=== PATIENT | male | born 1960 | race Caucasian/White ===

== ENCOUNTER 2016-10-16 05:54 | Inpatient (IN) | payer OTHER ==
[~2016-10-16] VITALS: Ht 172.7 cm; Wt 109.3 kg
[2016-10-16] VITALS (7 sets, daily range): BP systolic 93–152; BP diastolic 54–80
--- NOTE | ~2016-10-16 | CARDNUC ---
[facility] [employer] [place] [address] CARDIAC NUCLEAR IMAGING REPORT Name: CARO GÓMEZ Room #: 210-P [facility] IN M.R.#: [id number] Admission: 10/16/16 Attend Phys: Alok Arambula Discharge: Date of : 58 Date of Service: 10/17/16 1706 Report #: [id number] THIS REPORT FOR: //name// CC: Alok Benítez Banner DATE OF SERVICE: 10/17/2016 VASODILATOR GATED SPECT MYOCARDIAL PERFUSION IMAGING: Regadenoson. REFERRING PHYSICIAN: Oneyda Lowry MD. REFERRING DIALYSIS TECHNICIAN: Jimi Mejia MD [facility]. HOSPITALIST: Alok Delgado MD. DATE OF STUDY: 10/17/2016. INDICATIONS FOR STUDY: Chest pain. RISK FACTORS: Age, hyperlipidemia, hypertension, history of tobacco abuse, and family history. CARDIAC HISTORY: Previous known coronary artery disease, status post coronary artery bypass graft surgery. CARDIAC MEDICATIONS: Norvasc, aspirin, and lisinopril. GENDER: Male. PROCEDURE: The patient was given 0.4 mg of intravenous regadenoson (Lexiscan) administered over approximately 20 seconds. The patient did complain of chest pain during the study. In response to complaints of chest discomfort, the patient was not given intravenous aminophylline. Note: The chest pain was described as tightness in the front of his shoulders. At baseline the blood pressure was 151/76 and the heart rate was 75; at completion of the regadenoson infusion the blood pressure was 128/70 and the heart rate was 108. At completion of the recovery phase, the blood pressure was 152/77 and the heart rate was 82. The baseline EKG demonstrated normal sinus rhythm, it was a normal EKG. The EKG at completion of the administration of regadenoson demonstrated significant ST-segment depression in the inferior and lateral leads, there was [address]-segment depression in the inferior leads, and [address]-segment depression in the lateral leads. This is considered a highly [facility] [address] [place] [address] CARDIAC NUCLEAR IMAGING REPORT Name: CARO GÓMEZ Room #: 210-P ADM IN M.R.#: [id number] Admission: 10/16/16 Attend Phys: Alok Arambula Discharge: Date of : 58 Date of Service: 10/17/16 1706 Report #: [id number] suspicious EKG response to Lexiscan. It is highly suspicious for ischemia. Rhythm disturbances included none. Gated-SPECT myocardial perfusion imaging was performed using a two-day imaging protocol and a single isotope technique. The 38.5 mCi of Tc-99m sestamibi was administered intravenously at rest; 35.1 mCi of Tc-99m sestamibi was administered intravenously within 20 seconds of the completion of the administration of regadenoson. Imaging was obtained in the supine position and when feasible, adjunctive stress imaging in the prone position was obtained. FINDINGS: The overall quality of the study was adequate. There was some evidence of attenuation artifact. There was no evidence of abnormal extracardiac uptake of the radionuclide. The baseline imaging study demonstrated very small very mild apical defect, small mild lateral defect near the base and small mild inferior defect near the base. The imaging obtained following the administration of the vasodilator demonstrated very small very mild apical defect of small to moderate in size and mild to moderate intensity lateral defect near the base. That was worse than seen at rest and a small mild to moderate in intensity inferior defect near the base that was worse than it was seen at rest. Prone images were unchanged from those seen with the regular stress or vasodilator images and are described above. These images demonstrate a small area of mild lateral partially reversible ischemia and small area of mild inferior partially reversible ischemia. Lateral defect is larger than the inferior defect. These areas of ischemia are seen in the context of an old inferolateral myocardial infarction. On gated analysis, the left ventricle demonstrated normal contractility, overall with severe septal hypokinesis, consistent with a known previous coronary artery bypass graft surgery. The gated ejection fraction was 62%. The left ventricle was of normal at rest and did dilate somewhat with administration of the vasodilator; however, there was insufficient dilatation to diagnose global ischemia. The TID was 1.13. IMPRESSIONS: CLINICAL RESPONSE: Possibly ischemic. STRESS EKG RESPONSE: Ischemic. MYOCARDIAL PERFUSION STUDY: Ischemic. FUNCTIONAL CAPACITY: Not assessed. CONCLUSIONS: The Lexiscan Cardiolite stress test demonstrates small area of mild lateral ischemia and small area of mild inferior ischemia in the context of an old inferolateral infarct. Overall, this is a moderate risk study. [address] [address] CARDIAC NUCLEAR IMAGING REPORT Name: KOMALOLYACARO Room #: 210-P [facility] IN M.R.#: [id number] Admission: 10/16/16 Attend Phys: Alok Arambula Discharge: Date of : 58 Date of Service: 10/17/166 Report #: [id number] Note: The results of this study were called to Dr. Mejia at around 3 o'clock today. <ELECTRONICALLY SIGNED> By: Bart Massey MD, FACC 10/18/16 1510 1706 193 Bart Massey MD, FACC /nt
--- NOTE | ~2016-10-16 | HC ---
[facility] [place] [address] CONSULTATION Name: CARO GÓMEZ Room #: 210-P ADM IN M.R.#: [id number] Admission: 10/16/16 Attend Phys: Alok Delgado Discharge: Date of : 58 Report #: [id number] THIS REPORT FOR: //name// CC: Alok Recio REQUESTING PHYSICIAN: Alok Delgado MD CHIEF COMPLAINT: Chest pain. HISTORY OF PRESENT ILLNESS: The patient is a 56-year-old man with a history of prior bypass surgery who presented to the emergency department at [facility] with chest pain. He described it as a burning sensation in his center and upper left chest. It occurred at rest. It lasted 5-20 minutes long. He did not have any nitroglycerin. He was evaluated in the emergency room and admitted and his cardiac troponin levels were negative. He denied any exertional symptoms. He has been inactive after a pelvic fracture earlier this winter from a horse riding accident. He denies associated diaphoresis or palpitations, but had been a little bit short of breath with the episodes. His symptoms were described as moderate to severe in nature. PAST MEDICAL HISTORY: Significant for coronary artery disease, status post bypass surgery in 2006. He has a 4-vessel CABG with YI to LAD, a saphenous vein graft to second obtuse marginal and a separate saphenous vein graft to the PDA of the right coronary artery. He has normal LV function. He has hypertension, hyperlipidemia. HOME MEDICATIONS: Include amlodipine, aspirin, fish oil, lisinopril 40 mg daily, Synthroid 100 mcg daily. ALLERGIES: He has some intolerance to STATINS. He developed severe muscle cramps. REVIEW OF SYSTEMS: CARDIOVASCULAR: Positive chest pain. No shortness of breath, no orthopnea. NEUROLOGIC: Denies slurred speech, extremity numbness or weakness. HEMATOLOGIC: No anemia or bleeding disorders. SKIN: No rashes. GENERAL: No fevers or chills. ALLERGIES: No aspirin or contrast allergies. NEUROLOGIC: Denies slurred speech, extremity numbness or weakness. No history [facility] [address] [place] [address] CONSULTATION Name: CARO GÓMEZ Room #: 210-P [facility] IN ..#: [id number] Admission: 10/16/16 Attend Phys: Alok Delgado Discharge: Date of : 58 Report #: [id number] of strokes, TIAs. PHYSICAL EXAMINATION: VITAL SIGNS: Blood pressure is 126/70, pulse is 87, temperature is 36.7. GENERAL: Pleasant, mildly obese, middle-aged male. He is alert, oriented, no apparent distress. NECK: Supple. No jugular venous distention. Carotid upstrokes are normal. CARDIOVASCULAR: Regular, no murmur. LUNGS: Clear to auscultation. ABDOMEN: Soft, nontender. EXTREMITIES: No peripheral edema. SKIN: Warm and dry. Electrocardiogram shows sinus rhythm with normal ST segments. LABORATORY DATA: Hemoglobin is 12.7, white blood cell count is 8.7, platelet count is 264. Troponin I is 0.04 x 2 sets. IMAGING: Chest x-ray and CTA were performed which showed negative for pulmonary embolism dissection. Lungs were clear. There is splenomegaly with a long slender splenic shape. Chest x-ray showed no acute process. IMPRESSION: 1. Angina. His symptoms for chest discomfort are concerning, is ruled out for an acute myocardial infarction. We will check a pharmacologic nuclear stress test. 2. Coronary artery disease, status post coronary artery bypass graft. He will continue with medical therapy including aspirin. 3. Dyslipidemia. His LDL was markedly elevated. At our last visit, he was supposed to be trialing a low dose of Crestor on a biweekly or triweekly schedule because he has a history of statin myalgia. By: [id number] Jimi Mejia MD, FACC /nt
--- NOTE | ~2016-10-16 | CATHLAB ---
[facility] [place] [address] INVASIVE PROCEDURE REPORT Name: CARO GÓMEZ Room #: 210-P [facility] IN .R.#: [id number] Admission: 10/16/16 Attend Phys: Alok Arambula Discharge: 10/18/16 Date of : 58 Date of Service: 10/18/16 1027 Report #: [id number] THIS REPORT FOR: //name// CC: Alok Recio DATE OF SERVICE: 10/18/2016 Done and dictated by Dr. Enrique on 10/18/2016. PREOPERATIVE DIAGNOSIS: Angina with abnormal nuclear stress test. POSTOPERATIVE DIAGNOSES: Angina with abnormal nuclear stress test; significant coronary artery disease with prior coronary artery bypass grafting. PROCEDURE: 1. Left heart catheterization. 2. Left ventriculography. 3. Selective right and left coronary arteriography. 4. Aortic coronary saphenous vein bypass graft study. 5. YI graft study. TECHNIQUE: After careful preparation and draping of the right femoral site, local anesthesia was achieved by injection of 1% lidocaine. Utilizing the Seldinger technique, a 6-Slovak sheath was inserted in the right femoral artery. I then advanced a 6-Slovak pigtail catheter in left ventricular cavity where pressure was recorded. A single left ventriculogram was performed with 35 mL of contrast injected, the heart projected in the 30 degree BAGLEY projection. Under careful pressure monitoring, the catheter was withdrawn across the aortic valve. It was exchanged for a 6-Slovak JL and JR4 diagnostic catheters with which selective coronary arteriography was performed. Utilizing a 6-Slovak YI graft catheter, YI graft angiography was performed. Utilizing an Amplatz right 1 diagnostic catheter, the vein graft to the right coronary artery was defined with multiple views obtained and I defined the stump of the previously constructed vein graft to the circumflex. Following the final view, the last catheter was withdrawn. The arterial sheath was removed and a Mynx device was placed in the right femoral site with good hemostasis obtained. Sterile dressing was applied, and the patient was transferred to the recovery area in satisfactory condition. HEMODYNAMIC RESULTS: 1. The underlying heart rhythm was sinus. 2. Aortic pressure was 130/70. 3. Left ventricular end diastolic pressure was 15 mmHg. 4. Under direct pullback across the aortic valve, there was no significant [facility] [address] [place] [address] INVASIVE PROCEDURE REPORT Name: CARO GÓMEZ Room #: 210-P [facility] IN M.R.#: [id number] Admission: 10/16/16 Attend Phys: Alok Arambula Discharge: 10/18/16 Date of : 58 Date of Service: 10/18/16 1027 Report #: [id number] transvalvular systolic pressure gradient. CINEANGIOGRAPHIC RESULTS. LEFT VENTRICULOGRAPHY: Contrast medium outlined a normal size left ventricular cavity without intracavitary filling defects. There was normal global and segmental left ventricular systolic function, estimated ejection fraction being 60%. There was neither significant mitral regurgitation or mitral valve prolapse. The aortic valve appeared normal. SELECTIVE CORONARY ARTERIOGRAPHY: LEFT MAIN CORONARY ARTERY: This demonstrated 40% ostial and 30% distal narrowing. LEFT ANTERIOR DESCENDING: LAD demonstrated 30% ostial narrowing with total midvessel occlusion. CIRCUMFLEX: This is a nondominant vessel with 30% very proximal narrowing and total occlusion in the marginal system. RIGHT CORONARY ARTERY: This is a large dominant vessel with total occlusion in its mid portion. GRAFT STUDY: A. There was a widely patent YI graft to the mid LAD with good filling of the distal system and no stenoses noted. B. There was a widely patent vein graft to the distal right coronary artery with no significant graft stenoses noted. There was 50% narrowing of the posterior descending branch of the distal right coronary artery. C. There was definition of the stump of the previously constructed vein graft to the circumflex. IMPRESSION: 1. Significant multivessel coronary artery disease as outlined above. 2. Normal left-sided hemodynamic study. <ELECTRONICALLY SIGNED> By: Pipe Enrique MD, [facility] 10/20/16 0958 1027 [id number] Pipe Enrique MD, FACC /nt
--- NOTE | ~2016-10-16 | EKG ---
[place] [address] [facility] [place] [address] ELECTROCARDIOGRAM REPORT Name: CARO GÓMEZ Room #: 210-P ADM IN M.R.#: [id number] Admission: 10/16/16 Attend Phys: Alok Delgado Discharge: Date of : 58 Report #: [id number] THIS REPORT FOR: //name// [facility] Test Date: 2016-10-17 Test Time: 16:44:59 Pat Name: CARO GÓMEZ Department: Room: 210 P Gender: M Copy Writer: Billy PIMENTEL : 1960 Requested By: Jimi Mejia Order Number: [id number] MD: Enzo Stewart Measurements Intervals [place] Rate: 66 P: 6 [place]: 143 QRS: -2 QRSD: 98 T: 68 QT: 399 QTc: 418 Interpretive Statements Sinus rhythm Minimal ST depression, lateral leads Compared to ECG 10/16/2016 06:05:31 ST (T wave) deviation still present Electronically Signed On 10-18-2016 7:56:52 CDT by Enzo Stewart [email or web address] <ELECTRONICALLY SIGNED> By: Enzo Stewart MD, [facility] 10/18/16 0756 1644 1644 Enzo Stewart MD, [facility] /EPI
--- NOTE | ~2016-10-16 | EKG ---
[facility] [place] [address] ELECTROCARDIOGRAM REPORT Name: CARO GÓMEZ [id number] Admission: 10/16/16 Attend Phys: Discharge: Date of : 58 Report #: [id number] THIS REPORT FOR: //name// [facility] ED Test Date: 2016-10-16 Test Time: 06:05:31 Pat Name: CARO GÓMEZ Department: Room: Gender: M Due Diligence Coordinator: [id number] : 1960 Requested By: Laurita Rodriguez Order Number: [id number] MD: Enzo Stewart Measurements Intervals [place] Rate: 74 P: 1 [place]: 139 QRS: -2 QRSD: 93 T: 66 QT: 369 QTc: 410 Interpretive Statements Sinus rhythm Cannot rule out Inferior infarct, old Nonspecific ST segment abnormality No previous ECG available for comparison Electronically Signed On 10-16-2016 8:54:58 CDT by Enzo Stewart [email or web address] <ELECTRONICALLY SIGNED> By: Enzo Stewart MD, [facility] 10/16/16 0854 0605 4 Enzo Stewart MD, FACC /EPI
[~2016-10-16 05:54] MED LIST: ACETAMINOPHEN650 M5 PO; ASPIRIN EC81 M1 PO; CARAFATE 1 GM TA1 GM PO; CLONAZEPAM 1 MG1 M1 PO; CRESTOR5 MG PO; FISH OIL 1,001000 MG PO; LIDODERM 5%1 PATC1 TOP; LISINOPRIL10 MG PO; MECLIZINE 25 MG25 M1 PO; NEXIUM40 MG PO; NORCO 5-325 TA1 EACH PO; PHENERGAN 25 MG25 M1 PO; PROMETHAZINE HC25 M1 PO; SERTRALINE HCL100 MG PO; SYNTHROID100 MCG PO; TAMSULOSIN HCL0.4 MG PO
[2016-10-16] MEDS ORDERED: PERCOCET 10-321 EACH PO (06:08)
[2016-10-16] MEDS ORDERED: XANAX 0.5 MG0.5 MG PO (06:12)
[2016-10-16] MEDS ORDERED: TRINTELLIX PO (06:13)
[2016-10-16] MEDS ORDERED: LOMOTIL TABLET1 EACH PO (06:13)
[2016-10-16] MEDS ORDERED: AMLODIPINE BESY10 MG PO (06:14)
[2016-10-16] MEDS ORDERED: FEXOFENADI30 MG/5 ML PO (06:15)
[2016-10-16] MEDS ORDERED: DICYCLOMINE HCL20 MG PO (06:16)
[2016-10-16 06:29] LABS: MCH 28.5 pg (26.0-34.0)
[2016-10-16 06:30] LABS: ABSOLUTE NEUTROPHILS 4.8 thou/uL (1.4-8.2); BASOPHILS 1.3 % (0.0-2.0); EOSINOPHILS 5.8 % (0.0-3.0); HEMATOCRIT 35.6 % (42.0-52.0); HEMOGLOBIN 11.9 gm/dL (14.0-18.0); LYMPHOCYTES 21.5 % (24.0-44.0); MCHC 33.4 g/dL (28.0-37.0); MCV 85.4 fL (80.0-100.0); MONOCYTES 8.2 % (1.0-8.0); PLATELET COUNT 237 thou/uL (150-400); POLYS 63.2 % (36.0-66.0); RBC 4.18 mil/uL (4.50-6.00); RDW 15.9 % (10.5-14.5); WBC 7.6 thou/uL (4.0-11.0)
[2016-10-16 06:32] LABS: MANUAL DIFF NO
[2016-10-16 06:36] LABS: ANION GAP 9 mmol/L (7-16); BUN 15 mg/dL (7-18); CALCIUM 9.1 mg/dL (8.5-10.1); CHLORIDE 106 mmol/L (98-107); CO2 26 mmol/L (21-32); CREATININE 1.2 mg/dL (0.7-1.3); GLUCOSE 134 mg/dL (74-106); POTASSIUM 4.3 mmol/L (3.5-5.1); SODIUM 141 mmol/L (136-145)
[2016-10-16 06:46] LABS: TROPONIN-I < 0.04 ng/mL (<0.04-0.07)
[2016-10-16 06:49] LABS: NT-PRO BRAIN NAT PEPTIDE 24 pg/mL (<300)
[2016-10-16 11:18] LABS: CHOLESTEROL 242 mg/dL (<200); HDL CHOLESTEROL 41 mg/dL (>40); LDL CHOLESTEROL 177 mg/dL (<100); TC:HDL 5.9 Ratio (Not establshd); TRIGLYCERIDE 122 mg/dL (<150); VLDL 24 mg/dL (<40)
[2016-10-17 04:28] LABS: ABSOLUTE NEUTROPHILS 4.9 thou/uL (1.4-8.2); BASOPHILS 0.8 % (0.0-2.0); EOSINOPHILS 5.3 % (0.0-3.0); HEMATOCRIT 38.2 % (42.0-52.0); HEMOGLOBIN 12.7 gm/dL (14.0-18.0); LYMPHOCYTES 29.6 % (24.0-44.0); MCH 28.4 pg (26.0-34.0); MCHC 33.2 g/dL (28.0-37.0); MCV 85.5 fL (80.0-100.0); PLATELET COUNT 264 thou/uL (150-400); POLYS 56.3 % (36.0-66.0); RBC 4.47 mil/uL (4.50-6.00); RDW 15.8 % (10.5-14.5); WBC 8.7 thou/uL (4.0-11.0)
[2016-10-17 04:34] LABS: MANUAL DIFF NO
[2016-10-17 04:48] LABS: ALBUMIN 3.6 g/dL (3.4-5.0); CALCIUM 9.4 mg/dL (8.5-10.1); CREATININE 1.1 mg/dL (0.7-1.3); MAGNESIUM 1.9 mg/dL (1.8-2.4); TOTAL BILIRUBIN 0.5 mg/dL (<0.1-1.0); TOTAL PROTEIN 7.4 g/dL (6.4-8.2)
[2016-10-17 04:55] VITALS: BP 121/84
[2016-10-17 07:00] VITALS: BP 143/78
[2016-10-17 11:30] VITALS: BP 126/70
[2016-10-17 16:00] VITALS: BP 116/66
[2016-10-17 19:27] VITALS: BP 102/64
[2016-10-18 03:54] VITALS: BP 124/74
[2016-10-18 08:00] VITALS: BP 116/55
[2016-10-18 14:52] VITALS: BP 121/70
[2016-10-18 16:28] VITALS: BP 121/70
== END 2016-10-18 16:21 | disposition home or self-care (01) | DRG 287 ==
LOC: ER 05:54 → 2N 09:30 → EROBS 09:30 → 2N 11:07
PROVIDERS: Emergency Medicine; Nurse Practitioner
PROC: 4A023N7 Measurement of Cardiac Sampling and Pressure, Left Heart, Percutaneous Approach (ICD-10-PCS; principal; 2016-10-18)
PROC: B2111ZZ Fluoroscopy of Multiple Coronary Arteries using Low Osmolar Contrast (ICD-10-PCS; 2016-10-18)
PROC: B2151ZZ Fluoroscopy of Left Heart using Low Osmolar Contrast (ICD-10-PCS; 2016-10-18)
PROC: B21F1ZZ Fluoroscopy of Other Bypass Graft using Low Osmolar Contrast (ICD-10-PCS; 2016-10-18)
PROC: B2181ZZ Fluoroscopy of Left Internal Mammary Bypass Graft using Low Osmolar Contrast (ICD-10-PCS; 2016-10-18)
DX: I25.119 Atherosclerotic heart disease of native coronary artery with unspecified angina pectoris (principal); M19.90 Unspecified osteoarthritis, unspecified site; K21.9 Gastro-esophageal reflux disease without esophagitis; I10 Essential (primary) hypertension; K22.70 Barrett's esophagus without dysplasia; K44.9 Diaphragmatic hernia without obstruction or gangrene; E78.5 Hyperlipidemia, unspecified; E03.9 Hypothyroidism, unspecified; K58.9 Irritable bowel syndrome, unspecified; F41.9 Anxiety disorder, unspecified; Z87.891 Personal history of nicotine dependence; Z87.442 Personal history of urinary calculi; Z79.899 Other long term (current) drug therapy; Z79.82 Long term (current) use of aspirin; Z95.1 Presence of aortocoronary bypass graft; Z87.81 Personal history of (healed) traumatic fracture; Z82.49 Family history of ischemic heart disease and other diseases of the circulatory system; Z83.3 Family history of diabetes mellitus; Z83.6 Family history of other diseases of the respiratory system; Z88.8 Allergy status to other drugs, medicaments and biological substances; Z90.49 Acquired absence of other specified parts of digestive tract; Z80.9 Family history of malignant neoplasm, unspecified
CPT/HCPCS: 10081